=== PATIENT | female | born 1960 ===

== ENCOUNTER 2021-03-17 10:51 | Emergency (ER) | payer SELFPAY ==
[2021-03-17] MEDS ORDERED: Acetaminophen 325 MG Tab ONE (11:09)
[2021-03-17] MEDS ORDERED: Acetaminophen 325 MG Tab PO ONE (11:19)
--- NOTE | 2021-03-17 12:33 | EDM.PDOC ---
ED HPI GENERAL MEDICAL PROBLEM - General Chief Complaint: Headache Stated Complaint: [id number] FEELS LIKE GOING TO PASS OUT HEADACHE Time Seen by Provider: 03/17/21 12:20 Source of Information: Reports: Patient History Limitations: Reports: No Limitations - History of Present Illness INITIAL COMMENTS - FREE TEXT/NARRATIVE: ED with c/o sinus congestion frontal headache poor appetite no nausea or vomiting. In [place] Thursday, diagnosed with sinus infection and put on cipro and prednisone. Chills No fever. Not tested at that time for COVID, Not vaccinated. Frontal Headache Pain Score (Numeric/FACES): 5 - Related Data Allergies Allergy/AdvReac Type Severity Reaction Status Date / Time No Known Allergies Allergy Verified 03/17/21 13:14 Past Medical History - Past Health History Medical/Surgical History: Denies Medical/Surgical History HEENT History: Reports: Sinusitis Other HEENT History: Diagnosed with sinusitis in [place] 03/14/21. States put on steroids and Cipro. Has not taken medications since 03/16/21 - Past Surgical History HEENT Surgical History: Reports: None Social & Family History - Tobacco Use Tobacco Use Status *Q: Never Tobacco User Second Hand Smoke Exposure: No - Caffeine Use Caffeine Use: Reports: Coffee, Soda, Tea - Recreational Drug Use Recreational Drug Use: No ED ROS GENERAL - Review of Systems Review Of Systems: Comprehensive ROS is negative, except as noted in HPI. - Physical Exam Exam: See Below Exam Limited By: No Limitations General Appearance: Alert, Mild Distress Eye Exam: Bilateral Eye: Conjunctival Injection, EOMI, PERRL Ears: Normal External Exam Nose: Normal Inspection Throat/Mouth: Normal Inspection Head Exam: Atraumatic, Normocephalic Neck: Normal Inspection, Full Range of Motion Respiratory/Chest: No Respiratory Distress, Lungs Clear, Decreased Breath Sounds (bases) Cardiovascular: Normal Peripheral Pulses, Regular Rate, Rhythm GI/Abdominal: Normal Bowel Sounds, Soft Neuro Exam (Abbreviated): Alert, Oriented, Normal Cognition, Normal Gait Extremities: Normal Inspection Psychiatric: Normal Affect, Normal Mood Skin Exam: Warm, Dry, Intact, Pallor Course - Vital Signs Last Recorded V/S: Last Vital Signs Temp 98.7 F 03/17/21 11:42 Pulse 85 03/17/21 11:42 Resp 16 03/17/21 11:42 BP 105/70 03/17/21 11:42 Pulse Ox 94 L 03/17/21 11:42 - Orders/Labs/Meds Labs: Laboratory Tests 03/17/21 Range/Units 12:41 Influenza Type A RNA Negative (NEGATIVE) Influenza Type B RNA Negative (NEGATIVE) SARS-CoV-2 RNA ([facility]) Positive H (NEGATIVE) Meds: Medications Discontinued Medications Generic Name Dose Route Start Last Admin Trade Name Fernando PRN Reason Stop Dose Admin Acetaminophen Confirm 03/17/21 11:09 03/17/21 11:19 Acetaminophen 325 Mg Tab Administered 03/17/21 11:10 650 mg Dose Administration 650 mg .ROUTE .STK-MED ONE Acetaminophen 650 mg 03/17/21 11:19 03/17/21 14:09 Acetaminophen 325 Mg Tab PO 03/17/21 11:20 Not Given NOW ONE Departure - Departure Time of Disposition: 13:53 Disposition: Home, Self-Care 01 Condition: Good Clinical Impression: Sinusitis, COVID - Discharge Information *PRESCRIPTION DRUG MONITORING PROGRAM REVIEWED*: No *COPY OF PRESCRIPTION DRUG MONITORING REPORT IN PATIENT RALPH: No Instructions: COVID-19 Frequently Asked Questions, COVID-19: What to Do If You Are Sick- [facility] (07/11/2020) Forms: ED Department Discharge Additional Instructions: quarantine 14 days from onset of symptoms fluids tylenol 500mg every 4 hours as needed over counter symptoms managment muccinex for congestion humidifier notify contacts of exosure. Contacts need to be notified. They do not need to be seen unless severe symptoms, If testing deired for contacts, may be done locally by clinics testing sites. Good hand washing mask Sepsis Event Note (ED) - Evaluation Sepsis Screening Result: No Definite Risk
[2021-03-17 13:48] LABS: CORONAVIRUS COVID-19 NAA POSITIVE (NEGATIVE)
== END 2021-03-17 14:14 | disposition home or self-care (01) ==
LOC: DL.ED 10:51
DX: U07.1 COVID-19 (principal); J32.9 Chronic sinusitis, unspecified
CPT/HCPCS: 0240U; 99284; A9270